=== PATIENT | female | born 1985 | race Caucasian/White ===

== ENCOUNTER → 2022-05-23 14:58 | Outpatient (CLI) | payer OTHER, SELFPAY ==
--- NOTE | ~2022-05-23 | US_ITS ---
EXAMINATION: US soft tissue LE RT DATE: 05/23/2022 15:25 INDICATION: Right thigh mass. TECHNIQUE: Multiple grayscale and Doppler ultrasound images of the right thigh were obtained. COMPARISON: None FINDINGS: There is no abnormal mass in lateral right thigh in the patient's area of concern. IMPRESSION: 1. No abnormal mass in lateral right thigh in the patient's area of concern. Reviewed, dictated and finalized at location A.
== END ==
PROVIDERS: PCP Nurse Practitioner Family; Visit Provider Nurse Practitioner Family
DX: R22.41 Localized swelling, mass and lump, right lower limb (principal)
CPT/HCPCS: 76882

== ENCOUNTER 2022-06-10 14:42 | Outpatient (CLI) | payer OTHER, SELFPAY ==
--- NOTE | 2022-06-10 | ECHO_ITS ---
Patient Info Name: Pooja Balderas Age: 37 years : 1985 Gender: Female Ht: 69 in Wt: 115 lbs BSA: 1.58 m2 HR: 78 bpm BP: 127 / 77 mmHg Technical Quality: Fair Exam Date: 06/10/2022 3:27 PM Exam Location: [facility] Pulmonary Patient Status: Outpatient Admit Date: 06/10/2022 Staff Ordering Physician: MarinNatalia Artificial Flowers Dyer: Naz Linares RDCS Attending Provider: Marin, Natalia CHICAS Referring Physician: Marin FONSECA; Exam Type: CA echo doppler color flow Study Info Indications - HEART MURMUR HX/O PECTUS EXCAVATUM Complete two-dimensional, color flow and Doppler transthoracic echocardiogram is performed. Summary 1. Complete two-dimensional, color flow and Doppler transthoracic echocardiogram is performed. 2. Left ventricular chamber dimension is normal. 3. Left ventricular systolic function is normal, estimated at 55-60%. 4. The left ventricular diastolic function is normal. 5. There is trace tricuspid valve regurgitation. 6. No pulmonary hypertension, estimated pulmonary arterial systolic pressure is 22 mmHg. Left Ventricle Tissue doppler is not performed. Left ventricular chamber dimension is normal. Left ventricular systolic function is normal, estimated at 55-60%. The left ventricular diastolic function is normal. Right Ventricle Moderator band, a normal variant noted. Right ventricular chamber dimension is normal. Right ventricular systolic function is normal. Left Atria Left atrial chamber dimension is normal. Right Atria Right atrial chamber dimension is normal. Aortic Valve The aortic valve is trileaflet. There is no aortic valve stenosis. There is no aortic valve regurgitation. Pulmonic Valve There is no pulmonic regurgitation. Mitral Valve There is no mitral valve stenosis. There is no mitral valve regurgitation. Tricuspid Valve There is trace tricuspid valve regurgitation. No pulmonary hypertension, estimated pulmonary arterial systolic pressure is 22 mmHg. Pericardium/Pleural There is no pericardial effusion. Inferior Vena Cava Normal inferior vena cava with >50% collapse upon inspiration consistent with normal right atrial pressure, 5 mmHg. Aorta The aortic root size at the sinus of Valsalva is normal. Left Ventricular Outflow Tract Name Value Normal LVOT 2D LVOT Diameter 2.0 cm LVOT Doppler LVOT Peak Gradient 4 mmHg LVOT Mean Gradient 2 mmHg LVOT VTI 21 cm LVOT VTI/AV VTI Ratio 0.8 LVOT Stroke Volume 66 ml LVOT CO 13.7 l/min LVOT CI 8.7 l/min/m2 Pulmonic Valve Name Value Normal PV Doppler PV Peak Gradient 1 mmHg Mitral Valve
== END 2022-06-10 14:43 | disposition home or self-care (01) ==
PROVIDERS: PCP Nurse Practitioner Family; Visit Provider Nurse Practitioner Family
DX: R01.1 Cardiac murmur, unspecified (principal); R22.41 Localized swelling, mass and lump, right lower limb
CPT/HCPCS: 93306

== ENCOUNTER 2022-07-20 18:57 | Emergency (ER) | payer OTHER, SELFPAY ==
[2022-07-20 19:07] VITALS: BP 117/80; PULSE 86; RESP 20; TEMP 36.9; O2SAT 100
--- NOTE | 2022-07-20 19:46 | ED.FEMALEGU ---
HPI - Female Genitourinary General Chief complaint: Urogenital-Female Stated complaint: Possible UTI Source: patient Mode of arrival: ambulatory History of Present Illness HPI Narrative: This is a 37-year-old female who presented to urgent care with complaints of burning while urinating, urgency and frequency. According to patient she developed the symptoms on Monday. She denies any hematuria, or STD STDs. Her urinalysis indicate leukocytes she will be treated for urinary tract infection and pyelonephritis with Cipro. The patient denies SOB, CP, palpitation, extremity numbness, lightheadedness, dizziness, constipation, diarrhea, chills, or fever. Related Data Allergies Allergy/AdvReac Type Severity Reaction Status Date / Time No Known Allergies Allergy Verified 07/20/22 18:59 Review of Systems Review of Systems: A 14 organ system Review of Systems was performed and pertinent positives included in the HPI, otherwise remaining ROS is negative. Exam Narrative: GENERAL: This is a well-nourished, well-developed patient, in no apparent distress. HEAD: normocephalic, atraumatic. EYES: PERRL. Sclera clear/white. Vision is grossly intact. EARS: External ears normal, auditory canals clear and without drainage, TMs normal without perforation. Hearing grossly intact. NOSE: External nose normal with no obvious nasal discharge, nares without redness, no rhinorrhea. THROAT: Mucous membranes moist, posterior pharynx clear. NECK: Neck supple, non-tender without lymphadenopathy, masses or thyromegaly. CARDIOVASCULAR: Regular rate and rhythm without murmurs, gallops, or rubs. RESPIRATORY: Clear to auscultation. Breath sounds equal bilaterally. No wheezes, rales, or rhonchi. GASTROINTESTINAL: Abdomen soft, non-tender, nondistended. Bowel sounds are active. No hepato-splenomegaly, or palpable masses. No guarding. CVA positive SKIN: warm, intact with no suspicious lesions or rash, good texture and turgor. NEURO: awake, alert, and oriented to person, place and time. There were no obvious focal neurologic abnormalities. EXTREMITIES: Normal range of motion. No edema. No calf tenderness. Course Course Emergency Course: Patient will be treated with Cipro and Diflucan patient reports of occasional candidiasis with the use of antibiotics Level of Care: Express Care Visit Vital Signs Vital signs: Vital Signs Temperature 98.5 F 07/20/22 19:07 Pulse Rate 86 07/20/22 19:07 Respiratory Rate 20 07/20/22 19:07 Blood Pressure 117/80 07/20/22 19:07 Pulse Oximetry 100 07/20/22 19:07 Oxygen Delivery Room Air 07/20/22 19:07 Temperature 98.5 F 07/20/22 19:07 Pulse Rate 86 07/20/22 19:07 Respiratory Rate 20 07/20/22 19:07 Blood Pressure 117/80 07/20/22 19:07 Pulse Oximetry 100 07/20/22 19:07 Oxygen Delivery Room Air 07/20/22 19:07 MDM - Female Genitourinary Differential Diagnosis Differential diagnosis: Likely urinary tract infection, bacterial vaginosis and vaginitis Lab Data Labs: Urine Glucose Negative Reference Range: Negative Urine Bilirubin Negative Reference Range: Negative Urine Ketone Negative Reference Range: Negative Urine Specific Cal[place]oun 1.030 Reference Range:1.001-1.035 Urine Blood 1+ Reference Range: Negative * * Urine pH 7.0 Reference Range: 5.0-9.0 Urine Protein 2+ Reference Range: Negative Urine Urobilinogen 0.2
== END 2022-07-20 19:45 | disposition home or self-care (01) ==
PROVIDERS: Emergency Provider Nurse Practitioner; PCP Nurse Practitioner Family
DX: N39.0 Urinary tract infection, site not specified (principal)
CPT/HCPCS: 81003; 87077; 87086; 87088; 99213; G0463

== ENCOUNTER 2022-10-26 17:30 | Emergency (ER) | payer OTHER, SELFPAY ==
[2022-10-26 17:41] VITALS: BP 100/65; PULSE 101; RESP 18; TEMP 37.3; O2SAT 100
--- NOTE | 2022-10-26 17:59 | ED.URI ---
HPI - URI/Sore Throat General Chief Complaint: Upper Respiratory Infection Stated Complaint: cough,headache Time Seen by Provider: 10/26/22 18:00 Source: patient, RN notes reviewed and old records reviewed Mode of arrival: ambulatory Limitations: no limitations History of Present Illness HPI Narrative: 37 year old female who present to express care with complaint three-week duration of a productive cough which is thick green. Patient states she called her doctor, was told to take Mucinex but were unable to see her till next week. Patient reports that for the past 2 days she has felt really run down, tired and has had headache also denies any fevers. Patient has been COVID vaccinated and booster taken, has not had flu shot this year. MD elicited complaint: cough (productive) and other (fatigue, headache,) Onset (ago): week(s) (3 weeks cough) Able to tolerate fluids by mouth: Yes Associated symptoms: headache and cough Treatments prior to arrival: other (Mucinex) Related Data Allergies Allergy/AdvReac Type Severity Reaction Status Date / Time No Known Allergies Allergy Verified 10/26/22 17:36 Review of Systems Review of Systems: CONSTITUTIONAL: Reports malaise,no chills, sweats, or fever. EYES: Denies visual changes, redness, or discharge. ENT:No rhinorrhea, congestion, sinus pain, otalgia or sore throat. CARDIOVASCULAR: Denies chest pain, palpitations, or edema. RESPIRATORY: Reports productive cough.? Denies dyspnea. GASTROINTESTINAL: Denies abdominal pain, nausea, vomiting, diarrhea SKIN: Denies rash or itching. MUSCULOSKELETAL: Denies myalgia. NEUROLOGIC: Reports temporal headache. All systems reviewed & are unremarkable except as noted in HPI and below PMFSH Past Medical History Medical History (Updated 10/26/22 @ 18:30 by Elizabeth High NP) Heart murmur Surgical History Surgical History (Updated 10/26/22 @ 18:37 by Elizabeth High NP) History of dilation and curettage Previous section x2 Social History Social History (Updated 10/26/22 @ 18:31 by Elizabeth High NP) Smoking status: Never smoker Alcohol intake: current Alcohol use details: rare social Substance use: never Gender identity (if verbalized by the patient): Female Comments At time of signature, agree with nursing past medical, surgical, social and family history. There is no relevant family history pertinent to the presenting complaint Exam Narrative: GENERAL: Well-appearing, well-nourished,thin, and in no acute distress. HEAD: Normocephalic EYES: PERRLA, conjunctivae clear ENT: Nares clear, turbinates edematous and erythematous, clear discharge. Mucous membranes moist. TM pearly dickerson with dull light reflex bilaterally; no tragal tenderness. Oropharynx erythematous without lesions. Tonsils not enlarged and without exudate, no drooling, no hoarseness, no trismus, uvula midline. NECK: Supple. No lymphadenopathy CHEST: Clear to auscultation, breath sounds equal. No wheezing, rhonchi, rales, or stridor. No respiratory distress, speaks in full sentences.productive cough green mucous SAO2 100% on room air HEART: Regular rate and rhythm. murmur noted greater left upper chest heard. SKIN: Warm, dry, no rash. NEURO: Alert and oriented x3. PSYCH: Normal mood and affect Course Course Emergency Course: Patient is aware of diagnosis, understands and agrees to treatment plan.? Anticipatory guidance given.? Patient agrees to follow-up as directed and is aware of reasons to seek care at the emergency department. Portions of this record may have been created with voice recognition software Level of Care: Express Care Visit Vital Signs Vital signs: Vital Signs Temperature 37.3 C 10/26/22 17:41 Pulse Rate 101 H 10/26/22 17:41 Respiratory Rate 18 10/26/22 17:41 Blood Pressure 100/65 10/26/22 17:41 Pulse Oximetry 100 10/26/22 17:41 Oxygen Delivery Room Air 10/26/22 17:41
== END 2022-10-26 18:13 | disposition home or self-care (01) ==
PROVIDERS: Emergency Provider Registered Nurse; PCP Nurse Practitioner Family
DX: J06.9 Acute upper respiratory infection, unspecified (principal); Z20.822 Contact with and (suspected) exposure to COVID-19; R01.1 Cardiac murmur, unspecified
CPT/HCPCS: 87426; 87804; 99213; C9803; G0463